=== PATIENT | male | born 1990 | race Caucasian/White ===

== ENCOUNTER 2016-09-15 23:15 | Emergency (ER) | payer MEDICAID, OTHER ==
[~2016-09-15] VITALS: Ht 160 cm; Wt 72.6 kg
[2016-09-15 23:49] LABS: microscopic required? NO
[2016-09-15 23:53] LABS: BASOPHIL % 0.5 % (0-2); PLATELET COUNT 208 x10^3mcL (130-400)
[2016-09-15 23:57] LABS: urine erythrocyte NEGATIVE (NEGATIVE)
[2016-09-16 00:06] LABS: CALCIUM 8.8 mg/dL (8.5-10.1); CARBON DIOXIDE 24.7 mmol/L (21-32); CHLORIDE SERUM 104 mmol/L (98-107); GFR1 > 60 mL/min; GLUCOSE SERUM 94 mg/dL (74-106); POTASSIUM SERUM 3.2 mmol/L (3.5-5.1); SODIUM SERUM 142 mmol/L (136-145)
[2016-09-16 00:06] LABS: AMPHETAMINE QUAL UR NONE DETECTED (NEG <=1000)
[2016-09-16 00:12] LABS: ALBUMIN 3.9 g/dL (3.4-5.0); ALKALINE PHOSPHATASE 75 U/L (46-116); ALT/SGPT 55 U/L (16-63); AST/SGOT 27 U/L (15-37); BILIRUBIN TOTAL 0.5 mg/dL (0.20-1.00); CHOLESTEROL 158 mg/dL (<200); TOTAL PROTEIN, SERUM 7.1 g/dL (6.4-8.2)
[2016-09-16 00:36] VITALS: BP 107/49
== END 2016-09-16 00:36 | disposition left against medical advice (07) ==
LOC: ED 23:15
PROVIDERS: Specialist
DX: T43.591A Poisoning by other antipsychotics and neuroleptics, accidental (unintentional), initial encounter (principal); Y92.9 Unspecified place or not applicable
CPT/HCPCS: 83880; G0480; J7030; Q0092

== ENCOUNTER 2017-04-24 21:45 | Emergency (ER) | payer OTHER ==
[2017-04-25 00:11] VITALS: BP 111/63
== END 2017-04-25 00:11 | disposition home or self-care (01) ==
LOC: ED 21:45
DX: J11.1 Influenza due to unidentified influenza virus with other respiratory manifestations (principal); R11.10 Vomiting, unspecified; R19.7 Diarrhea, unspecified
CPT/HCPCS: J1885; Q0162